=== PATIENT | female | born 1960 ===

== ENCOUNTER 2021-12-28 20:05 | Emergency (ER) | payer OTHER ==
--- NOTE | 2021-12-28 21:47 | XRay Report ---
Right foot 4 views INDICATION: Right foot pain following injury IMPRESSION: There is an obliquely oriented fracture involving the proximal phalanx of the third toe. Signer Name: Kin Fine MD Signed: 12/28/2021 9:43 PM Workstation Name: [id number]
--- NOTE | 2021-12-29 02:32 | Emergency Department Report ---
ED Lower Extremity HPI - General Chief Complaint: Extremity Injury, Lower Stated Complaint: RT FOOT INJURY Time Seen by Provider: 12/29/21 01:20 Source: patient, family Mode of arrival: Ambulatory Limitations: No Limitations - History of Present Illness Initial Comments: 61-year-old female with medical complaining of right toe pain after accidentally striking her foot on the chair resulting in swelling to the third toe and pain with standing palpation and range of motion. Pain is dull and throbbing there is a slight bluish tent/bruising present. No numbness or tingling is noted MD Complaint: foot injury Place: home Severity: moderate Improves With: nothing Worsens With: nothing Associated Symptoms: able to partially bear weight - Related Data Previous Rx's Medication Instructions Recorded Last Taken Type HYDROcodone/APAP 5-325 [[place] 1 each PO Q6HR PRN #10 tablet 12/29/21 Unknown Rx 5/325] Allergies Allergy/AdvReac Type Severity Reaction Status Date / Time No Known Allergies Allergy Verified 12/28/21 20:57 ED Review of Systems ROS: Stated complaint: RT FOOT INJURY Other details as noted in HPI Comment: All other systems reviewed and negative ED Past Medical Hx - Medications Home Medications: Home Medications Medication Instructions Recorded Confirmed Last Taken Type HYDROcodone/APAP 5-325 [[place] 1 each PO Q6HR PRN #10 tablet 12/29/21 Unknown Rx 5/325] ED Physical Exam - General Limitations: No Limitations General appearance: alert, in no apparent distress - Head Head exam: Present: atraumatic, normocephalic - Eye Eye exam: Present: normal appearance, PERRL, EOMI Pupils: Present: normal accommodation - ENT ENT exam: Present: normal exam, normal orophraynx, mucous membranes moist - Neck Neck exam: Present: normal inspection - Respiratory Respiratory exam: Present: normal lung sounds bilaterally. Absent: respiratory distress - Cardiovascular Cardiovascular Exam: Present: regular rate, normal rhythm. Absent: systolic murmur, diastolic murmur, rubs, gallop - GI/Abdominal GI/Abdominal exam: Present: soft, normal bowel sounds - Extremities Exam Extremities exam: Present: normal inspection, tenderness, other (Pain to the area third toe with some swelling and ecchymosis noted. Pain with palpation and pain with range of motion. Pulses 2+ to the foot on dorsalis pedis and posterior tibialis no deformity is noted to the ankle or midfoot region.) - Back Exam Back exam: Present: normal inspection - Neurological Exam Neurological exam: Present: alert, oriented X3 - Psychiatric Psychiatric exam: Present: normal affect, normal mood - Skin Skin exam: Present: warm, dry, intact, normal color, ecchymosis. Absent: rash ED Course Vital Signs 12/28/21 20:32 Temperature 98.1 F Pulse Rate 74 Respiratory 18 Rate Blood Pressure 107/68 O2 Sat by Pulse 99 Oximetry ED Lower Extremity MDM - Radiology Data Radiology results: report reviewed [facility] [address] [place] [address] XRay Report Signed Patient: RAQUEL CALVILLO R#: [id number] : 1960 Acct:[id number] Age/Sex: 61 / F ADM Date: 12/28/21 Loc: ED Attending Dr: Ordering Physician: ED MD LEONARDO Date of Service: 12/28/21 Procedure(s): XR foot 3+V RT Accession Number(s): [id number] cc: ED MD LEONARDO Fluoro Time In Minutes: Right foot 4 views INDICATION: Right foot pain following injury IMPRESSION: There is an obliquely oriented fracture involving the proximal phalanx of the third toe. Signer Name: Kin Fine MD Signed: 12/28/2021 9:43 PM Workstation Name: [id number] Transcribed By: BC Dictated By: Kin Fine MD Electronically Authenticated By: Kin Fine MD Signed Date/Time: 12/28/212142 DD/ 41 TD/TT: Print Cancel Critical care attestation.: If time is entered above; I have spent that time in minutes in the direct care of this critically ill patient, excluding procedure time. ED Disposition Clinical Impression: Toe fracture, right Disposition: 01 HOME / SELF CARE / HOMELESS Is pt being admited?: No Does the pt Need Aspirin: No Condition: Stable Instructions: Toe Fracture, Cast or Splint Care, Adult Prescriptions: HYDROcodone/APAP 5-325 [[place] 5/325] 1 each PO Q6HR PRN #10 tablet PRN Reason: Pain Referrals: [facility] [Provider Group] - 3-5 Days Print Language: SLOVAK
[2021-12-29 03:16] VITALS: BP 116/67
== END 2021-12-29 03:16 | disposition home or self-care (01) ==
LOC: ED 20:05
DX: S92.511A Displaced fracture of proximal phalanx of right lesser toe(s), initial encounter for closed fracture (principal); W22.8XXA Striking against or struck by other objects, initial encounter; Y93.89 Activity, other specified; Y92.89 Other specified places as the place of occurrence of the external cause; Y99.8 Other external cause status
CPT/HCPCS: 99283